=== PATIENT | male | born 1935 | race Caucasian/White ===

== ENCOUNTER → 2016-12-21 | Outpatient (CLI) | payer MEDICARE | END | disposition home or self-care (01) | LOC: PCVCIMAG 09:41 | PROVIDERS: ATTEND Internal Medicine Cardiovascular Disease | DX: I87.309 Chronic venous hypertension (idiopathic) without complications of unspecified lower extremity (principal) | CPT/HCPCS: 93325; 93351; G0463 ==

== ENCOUNTER → 2017-02-16 | Outpatient (CLI) | payer MEDICARE | END | disposition home or self-care (01) | LOC: PCVCIMAG 12:34 | PROVIDERS: ATTEND Internal Medicine Cardiovascular Disease | DX: I48.0 Paroxysmal atrial fibrillation (principal); I42.9 Cardiomyopathy, unspecified; I48.1 Persistent atrial fibrillation; E78.00 Pure hypercholesterolemia, unspecified | CPT/HCPCS: 80061; 93005; 93306; G0463 ==

== ENCOUNTER → 2017-03-19 | Outpatient (CLI) | payer MEDICARE | END | disposition home or self-care (01) | LOC: PCVCCLINIC 14:30 | PROVIDERS: ATTEND Internal Medicine Cardiovascular Disease | DX: I48.0 Paroxysmal atrial fibrillation (principal); E78.00 Pure hypercholesterolemia, unspecified; I10 Essential (primary) hypertension; I42.9 Cardiomyopathy, unspecified; R00.1 Bradycardia, unspecified | CPT/HCPCS: 80061; 93005; G0463 ==

== ENCOUNTER → 2017-09-14 | Outpatient (CLI) | payer MEDICARE | END | disposition home or self-care (01) | LOC: PCVCCLINIC 14:00 | PROVIDERS: ATTEND Internal Medicine Cardiovascular Disease | DX: I87.2 Venous insufficiency (chronic) (peripheral) (principal); I87.303 Chronic venous hypertension (idiopathic) without complications of bilateral lower extremity; I48.0 Paroxysmal atrial fibrillation; I10 Essential (primary) hypertension; E78.00 Pure hypercholesterolemia, unspecified; M19.90 Unspecified osteoarthritis, unspecified site; Z87.891 Personal history of nicotine dependence; Z79.899 Other long term (current) drug therapy | CPT/HCPCS: 80061; 93005; G0463 ==

== ENCOUNTER → 2017-09-15 | Outpatient (CLI) | payer MEDICARE ==
[~2017-09-15] MED LIST: DIAZEPAM 10 MG TABLET. ONE; IOHEXOL 300 MG/ML 100ML VIAL. ONE; IV NORMAL SALINE 500ML BAG 500 ML ONE; LIDOCAINE 1% Multi-Dose 20 ML VIAL. ONE; MIDAZOLAM HCL/PF 2 MG/2 ML VIAL. ONE; fentaNYL PF VIAL 100 MCG/2 ML VIAL ONE
--- NOTE | 2017-09-15 15:21 | PCVCINTER ---
EXAM: 1. INTRAVASCULAR ULTRASOUND OF THE INFERIOR VENA CAVA 2. INTRAVASCULAR ULTRASOUND OF THE RIGHT COMMON AND EXTERNAL ILIAC AND COMMON FEMORAL VEINS 3. INTRAVASCULAR ULTRASOUND OF THE LEFT COMMON AND EXTERNAL ILIAC AND COMMON FEMORAL VEINS 4. INFERIOR VENA CAVA AND BILATERAL ILIOFEMORAL VENOGRAPHY INDICATION: Iliofemoral venous obstruction. Chronic Venous Insufficiency Class 4a. Leg pain and swelling. Failed conservative therapy including medical grade compression stockings for at least 3 months. Venous hypertension chronic. PROCEDURE: Procedure and risks of IVC and ileofemoral venography and intravascular ultrasound, and venous stent placement as appropriate including bleeding, infection, venous thrombosis, stent migration/thrombosis, contrast-induced nephropathy requiring dialysis, stroke, and were discussed with the patient and consent obtained. Patient was given IV antibiotics. The patient's right neck and chest was prepped and draped in the normal sterile fashion. IV conscious sedation was used throughout the procedure with appropriate monitoring. Ultrasound was used to interrogate the neck and showed the internal jugular vein to be patent. A spot ultrasound image of the internal jugular vein was saved. Under ultrasound guidance access into the right internal jugular vein was obtained and an 8F sheath was placed to the level of the lower IVC. Catheter was placed into the lower IVC and IVC cavogram performed. Catheter was placed to the level of the right common femoral vein and right iliofemoral venogram obtained. Catheter was placed to the level of the left common femoral vein and left iliofemoral venogram was obtained. The 8 [place] intravascular ultrasound catheter was then placed to the level of the right common femoral vein and intravascular ultrasound evaluation of the right common femoral, right external iliac, and right common iliac veins was accomplished in a pull-back fashion. The 8 [place] intravascular ultrasound catheter was then placed to the level of the left common femoral vein and intravascular ultrasound evaluation of the left common femoral, left external iliac, and left common iliac veins was accomplished in a pull-back fashion. Intravascular ultrasound evaluation of the inferior vena cava was then accomplished in a pullback fashion. Sheath was removed and hemostasis obtained using manual pressure. FINDINGS: IVC INTRAVASCULAR ULTRASOUND: Normal vessel: 9.4 x 23.4 mm. Area = 158.4 sq. mm. RIGHT COMMON ILIAC VEIN INTRAVASCULAR ULTRASOUND: Normal vessel: 10.4 x 15.3 mm. Area = 126.9 sq. mm. RIGHT EXTERNAL ILIAC VEIN INTRAVASCULAR ULTRASOUND: Normal vessel: 8.2 x 21.9 mm. Area = 159.0 sq. mm. RIGHT COMMON FEMORAL VEIN INTRAVASCULAR ULTRASOUND: Normal vessel: 11.5 x 13.8 mm. Area = 119.1 sq. mm. LEFT COMMON ILIAC VEIN INTRAVASCULAR ULTRASOUND: Normal vessel: 11.4 x 18.8 mm. Area = 159.3 sq. mm. LEFT EXTERNAL ILIAC VEIN INTRAVASCULAR ULTRASOUND: Normal vessel: 13.9 x 18.4 mm. Area = 202.5 sq. mm. LEFT COMMON FEMORAL VEIN INTRAVASCULAR ULTRASOUND: Normal vessel: 10.6 x 17.3 mm. Area = 150.1 sq. mm. VENOGRAPHY: INFERIOR VENA CAVA: The infrarenal inferior vena cava shows good patency. Flattening and partial obliteration of the lumen of the suprarenal inferior vena cava may be a variant of normal although extrinsic compression cannot be excluded. RIGHT COMMON ILIAC VEIN: Vessel is patent without significant stenosis, scarring, or extrinsic compression. RIGHT EXTERNAL ILIAC VEIN: Vessel is patent without significant stenosis, scarring, or extrinsic compression. RIGHT COMMON FEMORAL VEIN: Vessel is patent without significant stenosis, scarring, or extrinsic compression. LEFT COMMON ILIAC VEIN: Vessel is patent without significant stenosis, scarring, or extrinsic compression. LEFT EXTERNAL ILIAC VEIN: Vessel is patent without significant stenosis, scarring, or extrinsic compression. LEFT COMMON FEMORAL VEIN: Vessel is patent without significant stenosis, scarring, or extrinsic compression. IMPRESSION: Intravascular ultrasound and venographic evaluation of the inferior vena cava and the common and external iliac and common femoral veins bilaterally is within normal limits except for flattening and partial obliteration of the suprarenal inferior vena cava. Further evaluation with abdominal and pelvic CT will be obtained. LOC:[id number]
== END | disposition home or self-care (01) ==
LOC: PCVCINTER 13:03
PROVIDERS: ATTEND Nuclear Medicine Nuclear Cardiology
DX: I87.2 Venous insufficiency (chronic) (peripheral) (principal); I82.429 Acute embolism and thrombosis of unspecified iliac vein; I87.309 Chronic venous hypertension (idiopathic) without complications of unspecified lower extremity; E78.5 Hyperlipidemia, unspecified; E78.00 Pure hypercholesterolemia, unspecified
CPT/HCPCS: 36012; 37252; 37253; 75820; 75825; 76937; 99152; 99153; C1751; C1753; C1769; C1894; J1644; J2250; J3010; J7040; Q9967

== ENCOUNTER → 2017-09-21 | Outpatient (CLI) | payer MEDICARE ==
[~2017-09-21] MED LIST changes: +ARNICA TOPICAL GEL 1.5OZ TUBE. TP ONE; +CEPHALEXIN 250 MG CAPSULE. ONE; -IOHEXOL 300 MG/ML 100ML VIAL. ONE; +IV 1/2 NORMAL SALINE 1,000 ML ONE; -IV NORMAL SALINE 500ML BAG 500 ML ONE; -LIDOCAINE 1% Multi-Dose 20 ML VIAL. ONE; +LIDOCAINE 1%/EPI 1:100,000 20 ML VIAL. ONE; -MIDAZOLAM HCL/PF 2 MG/2 ML VIAL. ONE; +SODIUM BICARBONATE 50 MEQ/50 ML VIAL. ONE; -fentaNYL PF VIAL 100 MCG/2 ML VIAL ONE
--- NOTE | 2017-09-21 12:15 | PCVCINTER ---
EXAM: LEFT GREAT SAPHENOUS VEIN ENDOVENOUS LASER ABLATION INDICATION: Chronic Venous Insufficiency Class 4a. Leg pain and swelling. Failed conservative therapy including medical grade compression stockings for at least 3 months. Venous hypertension chronic. PROCEDURE: Procedure and risks of endovenous laser ablation including thrombosis, vascular injury, nerve injury, skin necrosis, and infection were discussed with the patient and consent obtained. The left leg was prepped and draped in the normal sterile fashion. Using ultrasound guidance access into the left great saphenous vein was obtained and a 5F 70 cm long catheter was advanced to 2 cm below the saphenofemoral junction. The laser fiber was advanced through the catheter to its tip and the catheter partially retracted. Abundant tumescent anesthesia using a dilute lidocaine solution was given in the perivenous tissues throughout the length of the laser fiber. Ultrasound confirmed good position of the distal tip of the laser fiber as well as direct transcutaneous visualization. The 1470 [place]ornier laser was set to 6 hol[place] and a slow continuous pull-back technique employed to deliver 2472 Joules throughout the treated segment. Catheter and fiber were removed and hemostasis obtained. No immediate complications. The leg was dressed and wrapped appropriately and reinforced with a compression stocking. IMPRESSION: Satisfactory endovenous laser ablation of the LEFT GREAT SAPHENOUS VEIN. EXAM: POSTERIOR DUPLICATED LEFT GREAT SAPHENOUS VEIN ENDOVENOUS LASER ABLATION INDICATION: Chronic Venous Insufficiency Class 4a. Leg pain and swelling. Failed conservative therapy including medical grade compression stockings for at least 3 months. Venous hypertension chronic. PROCEDURE: Procedure and risks of endovenous laser ablation including thrombosis, vascular injury, nerve injury, skin necrosis, and infection were discussed with the patient and consent obtained. The left leg was prepped and draped in the normal sterile fashion. Using ultrasound guidance access into the posterior duplicated left great saphenous vein was obtained and a 5F 25 cm long catheter was advanced to 2 cm below the saphenofemoral junction. The laser fiber was advanced through the catheter to its tip and the catheter partially retracted. Abundant tumescent anesthesia using a dilute lidocaine solution was given in the perivenous tissues throughout the length of the laser fiber. Ultrasound confirmed good position of the distal tip of the laser fiber as well as direct transcutaneous visualization. The 1470 Dornier laser was set to 6 hol[place] and a slow continuous pull-back technique employed to deliver 875 Joules throughout the treated segment. Catheter and fiber were removed and hemostasis obtained. No immediate complications. The leg was dressed and wrapped appropriately and reinforced with a compression stocking. IMPRESSION: Satisfactory endovenous laser ablation of the posterior duplicated left great saphenous vein. EXAM: LEFT SMALL SAPHENOUS VEIN ENDOVENOUS LASER ABLATION INDICATION: Chronic Venous Insufficiency Class 4a. Leg pain and swelling. Failed conservative therapy including medical grade compression stockings for at least 3 months. Venous hypertension chronic. PROCEDURE: Procedure and risks of endovenous laser ablation including thrombosis, vascular injury, nerve injury, skin necrosis, and infection were discussed with the patient and consent obtained. The left leg was prepped and draped in the normal sterile fashion. Using ultrasound guidance access into the left small saphenous vein was obtained and a 5F 40 cm long catheter was advanced to mid posterior left thigh. The laser fiber was advanced through the catheter to its tip and the catheter partially retracted. Abundant tumescent anesthesia using a dilute lidocaine solution was given in the perivenous tissues throughout the length of the laser fiber. Ultrasound confirmed good position of the distal tip of the laser fiber as well as direct transcutaneous visualization. The 1470 Dornier laser was set to 5 holbrook and a slow continuous pull-back technique employed to deliver 1222 Joules throughout the treated segment. Catheter and fiber were removed and hemostasis obtained. No immediate complications. The leg was dressed and wrapped appropriately and reinforced with a compression stocking. IMPRESSION: Satisfactory endovenous laser ablation of the left small saphenous vein. LOC:[id number]
== END | disposition home or self-care (01) ==
LOC: PCVCINTER 07:08
PROVIDERS: ATTEND Nuclear Medicine Nuclear Cardiology
DX: I87.2 Venous insufficiency (chronic) (peripheral) (principal); I87.302 Chronic venous hypertension (idiopathic) without complications of left lower extremity; I87.321 Chronic venous hypertension (idiopathic) with inflammation of right lower extremity
CPT/HCPCS: 36478; 36479; C1751; C1769; C1894; J3490

== ENCOUNTER → 2017-09-28 | Outpatient (CLI) | payer MEDICARE ==
[~2017-09-28] MED LIST changes: -ARNICA TOPICAL GEL 1.5OZ TUBE. TP ONE; -CEPHALEXIN 250 MG CAPSULE. ONE; -IV 1/2 NORMAL SALINE 1,000 ML ONE; +IV NORMAL SALINE 1000ML BAG 1,000 ML ONE
--- NOTE | 2017-09-28 09:40 | PCVCINTER ---
EXAM: LEFT GREAT SAPHENOUS VEIN ENDOVENOUS LASER ABLATION INDICATION: Chronic Venous Insufficiency Class 4a. Leg pain and swelling. Failed conservative therapy including medical grade compression stockings for at least 3 months. Venous hypertension chronic. PROCEDURE: Procedure and risks of endovenous laser ablation including thrombosis, vascular injury, nerve injury, skin necrosis, and infection were discussed with the patient and consent obtained. The left leg was prepped and draped in the normal sterile fashion. Using ultrasound guidance access into the left great saphenous vein was obtained and a 5F 60 cm long catheter was advanced to 2 cm below the saphenofemoral junction. The laser fiber was advanced through the catheter to its tip and the catheter partially retracted. Abundant tumescent anesthesia using a dilute lidocaine solution was given in the perivenous tissues throughout the length of the laser fiber. Ultrasound confirmed good position of the distal tip of the laser fiber as well as direct transcutaneous visualization. The 1470 Dornier laser was set to 6 [place] and a slow continuous pull-back technique employed to deliver 2416 Joules throughout the treated segment. Catheter and fiber were removed and hemostasis obtained. No immediate complications. The leg was dressed and wrapped appropriately and reinforced with a compression stocking. IMPRESSION: Satisfactory endovenous laser ablation of the left great saphenous vein. EXAM: LEFT SMALL SAPHENOUS VEIN ENDOVENOUS LASER ABLATION INDICATION: Chronic Venous Insufficiency Class 4a. Leg pain and swelling. Failed conservative therapy including medical grade compression stockings for at least 3 months. Venous hypertension chronic. PROCEDURE: Procedure and risks of endovenous laser ablation including thrombosis, vascular injury, nerve injury, skin necrosis, and infection were discussed with the patient and consent obtained. The left leg was prepped and draped in the normal sterile fashion. Using ultrasound guidance access into the left small saphenous vein was obtained and a 5F 30 cm long catheter was advanced to 2 cm below the saphenopopliteal junction. The laser fiber was advanced through the catheter to its tip and the catheter partially retracted. Abundant tumescent anesthesia using a dilute lidocaine solution was given in the perivenous tissues throughout the length of the laser fiber. Ultrasound confirmed good position of the distal tip of the laser fiber as well as direct transcutaneous visualization. The 1470 Dornier laser was set to 5 holbrook and a slow continuous pull-back technique employed to deliver 1106 Joules throughout the treated segment. Catheter and fiber were removed and hemostasis obtained. No immediate complications. The leg was dressed and wrapped appropriately and reinforced with a compression stocking. IMPRESSION: Satisfactory endovenous laser ablation of the left small saphenous vein. LOC:[id number]
== END | disposition home or self-care (01) ==
LOC: PCVCINTER 07:01
PROVIDERS: ATTEND Nuclear Medicine Nuclear Cardiology
DX: I87.2 Venous insufficiency (chronic) (peripheral) (principal); I87.322 Chronic venous hypertension (idiopathic) with inflammation of left lower extremity
CPT/HCPCS: 36478; 36479; C1751; C1769; C1894; J3490; J7030

== ENCOUNTER → 2018-01-11 | Outpatient (CLI) | payer MEDICARE | END | disposition home or self-care (01) | LOC: PCVCIMAG 11:27 | DX: I87.2 Venous insufficiency (chronic) (peripheral) (principal); I48.0 Paroxysmal atrial fibrillation; I10 Essential (primary) hypertension; I42.9 Cardiomyopathy, unspecified; E78.00 Pure hypercholesterolemia, unspecified; Z87.891 Personal history of nicotine dependence; Z79.899 Other long term (current) drug therapy | CPT/HCPCS: 93970; G0463 ==

== ENCOUNTER → 2018-04-14 | Outpatient (CLI) | payer MEDICARE | END | disposition home or self-care (01) | LOC: PCVCCLINIC 14:00 | DX: I48.0 Paroxysmal atrial fibrillation (principal); I10 Essential (primary) hypertension; E78.00 Pure hypercholesterolemia, unspecified; I87.2 Venous insufficiency (chronic) (peripheral); I42.9 Cardiomyopathy, unspecified; Z87.891 Personal history of nicotine dependence; Z79.899 Other long term (current) drug therapy | CPT/HCPCS: 80061; 93005; G0463 ==

== ENCOUNTER → 2019-01-24 | Outpatient (CLI) | payer MEDICARE ==
--- NOTE | 2019-01-24 13:22 | PCVCIMAG ---
APPROVED REPORT Study performed: 01/24/2019 10:49:03 EXAM: Comprehensive 2D, Doppler, and color-flow Echocardiogram Patient Location: Echo lab Status: routine BSA: 2.09 HR: 54 bpmBP: 128/70 mmHg Rhythm: NSR Other Information Study Quality: Good Risk Factors: Cardiac Risk Factors: HTN, Hyperlipidemia Indications Cardiomyopathy 2D Dimensions IVSd: 12.96 (7-11mm)LVOT Diam: 22.79 (18-24mm) LVDd: 52.29 mm PWd: 9.72 (7-11mm)Ascending Ao: 33.35 (22-36mm) LVDs: 40.36 (25-40mm) Left Atrium: 46.49 (27-40mm) Aortic Root: 27.58 mm LV Single Plane 4CH: 59.24 % LV Single Plane 2CH: 49.79 % Biplane EF: 55.3 % Volumes Left Atrial Volume (Systole) Single Plane 4CH: 53.10 mLSingle Plane 2CH: 66.98 mL LA ESV Index: 28.00 mL/m2 Aortic Valve AoV Peak Jalil.: 1.15 m/s AO Peak Gr.: 5.32 mmHg Mitral Valve E/A Ratio: 1.1 MV Decel. Time: 349.45 ms MV E Max Jalil.: 0.68 m/s MV A Jalil.: 0.64 m/s TDI E/Lateral E': 8.50E/Medial E': 8.50 Medial E' Jalil.: 0.08 m/s Lateral E' Jalil.: 0.08 m/s Pulmonary Valve PV Peak Gr.: 2.70 mmHg Tricuspid Valve TR Peak Jalil.: 2.06 m/s TR Peak Gr.: 17.03 mmHg Left Ventricle The left ventricle is normal size. There is normal LV segmental wall motion. There is normal left ventricular wall thickness. Left ventricular systolic function is mildly decreased. LVEF is 40%. The left ventricular diastolic function is normal. Right Ventricle The right ventricle is normal size. The right ventricular systolic function is normal. Atria The left atrium size is normal. The right atrium size is normal. Aortic Valve The aortic valve is normal in structure. No aortic regurgitation is present. There is no aortic valvular stenosis. Mitral Valve The mitral valve is normal in structure. Mild mitral regurgitation. No evidence of mitral valve stenosis. Tricuspid Valve The tricuspid valve is normal in structure. There is no tricuspid valve regurgitation noted. Pulmonic Valve The pulmonary valve is normal in structure. There is no pulmonic valvular regurgitation. Great Vessels The aortic root is normal in size. IVC is normal in size and collapses >50% with inspiration. Pericardium There is no pericardial effusion. <Conclusion> The left ventricle is normal size. Left ventricular systolic function is mildly decreased. LVEF is 40%. The right ventricle is normal size. The left atrium size is normal. The aortic valve is normal in structure. Mild mitral regurgitation. There is no tricuspid valve regurgitation noted. The aortic root is normal in size. There is no pericardial effusion.
== END | disposition home or self-care (01) ==
LOC: PCVCIMAG 12:33
PROVIDERS: ATTEND Internal Medicine Cardiovascular Disease
DX: I34.0 Nonrheumatic mitral (valve) insufficiency (principal); I87.2 Venous insufficiency (chronic) (peripheral); I10 Essential (primary) hypertension; E78.00 Pure hypercholesterolemia, unspecified; I48.0 Paroxysmal atrial fibrillation; M19.90 Unspecified osteoarthritis, unspecified site; Z87.891 Personal history of nicotine dependence
CPT/HCPCS: 36415; 80061; 93005; 93306; G0463

== ENCOUNTER → 2019-03-08 | Outpatient (CLI) | payer MEDICARE ==
--- NOTE | 2019-03-08 16:43 | PCVCIMAG ---
APPROVED REPORT Study performed: 03/08/2019 15:20:05 Exam: Stress Echocardiogram Indication: Hyperlipidemia, Hypertension, chest pain Patient Location: Echo lab Stress Nurse: Kirsten Tomlinson RN Status: routine Ht: 6 ft 0 in HR: 59 bpm BP: 110/60 mmHg Rhythm: NSR Medical History Medical History: Paroxysmal Atrial Fibrillation,, HTN, Hyperlipidemia Procedure The patient underwent an Exercise Stress Test using the [place]q Protocol. Blood pressure, heart rate, and EKG were monitored. An Echocardiogram was performed by fiberglass quality technician in four stages in quad fashion. At peak stress, four selected images were obtained and placed side by side with resting images for comparison. Stress Test Details Stress Test: Exercise stress testing was performed using a Farooq protocol. HR Resting HR: 59 bpmMax Heart Rate (APMHR): 136 bpm Max HR Achieved: 136 bpmTarget HR (85% APMHR): 115 bpm % of APMHR: 100 Recovery HR: 64 bpm HR response to stress: Normal HR response to stress BP Resting BP: 110/60 mmHg Max BP: 148/68 mmHg Recovery BP: 110/60 mmHg BP response to stress: Normal blood pressure response to stress. ECG Resting ECG: Sinus Rhythm Stress ECG: Sinus Rhythm, PAC's, PVC's Arrhythmia: APC's Recovery ECG: Sinus Rhythm, Intermittent atrial fib Recovery Arrhythmia: PVC's, PAC's Clinical Reason for Termination: Maximal effort Exercise duration: 7 min sec Highest Stage Achieved: Stage 2: 2.5 mph at 12% grade. Exercise capacity: 10.10 METs Overall Exercise Capacity for Age: Good Pre-Stress Echo The resting Echocardiogram showed abnormal left ventricular contractility with an estimated Ejection Fraction of about 50%. Low normal ejection fraction at rest. No regional wall motion abnormalities. Post-Stress Echo The stress Echocardiogram showed normal left ventricular contractility with an estimated Ejection Fraction of about 50-55%. Normal augmentation of wall motion in all segments on post stress images. Clinical No clinical or ECG evidence for ischemia. Conclusion Clinical Response: Non-ischemic Exercise Capacity: Average Stress ECG Response: Non-ischemic Stress Echo Images: Non-ischemic Other Information Study Quality: Adequate
== END | disposition home or self-care (01) ==
LOC: PCVCIMAG 14:41
PROVIDERS: ATTEND Internal Medicine Cardiovascular Disease
DX: R07.9 Chest pain, unspecified (principal); I10 Essential (primary) hypertension; E78.5 Hyperlipidemia, unspecified; I48.0 Paroxysmal atrial fibrillation; M19.90 Unspecified osteoarthritis, unspecified site; Z79.899 Other long term (current) drug therapy; Z87.891 Personal history of nicotine dependence
CPT/HCPCS: 36415; 80061; 93005; 93325; 93351; G0463

== ENCOUNTER → 2019-11-02 | Outpatient (CLI) | payer MEDICARE | END | disposition home or self-care (01) | LOC: PCVCCLINIC 10:50 | PROVIDERS: ATTEND Internal Medicine Cardiovascular Disease | DX: I48.0 Paroxysmal atrial fibrillation (principal); I42.9 Cardiomyopathy, unspecified; I10 Essential (primary) hypertension; I87.2 Venous insufficiency (chronic) (peripheral); E78.00 Pure hypercholesterolemia, unspecified; M19.90 Unspecified osteoarthritis, unspecified site; Z87.891 Personal history of nicotine dependence; Z79.899 Other long term (current) drug therapy | CPT/HCPCS: 36415; 80061; 93005; G0463 ==